=== PATIENT | male | born 1960 | race Caucasian/White ===

== ENCOUNTER 2019-04-05 11:10 | Inpatient (IN) | payer BC ==
[~2019-04-05] VITALS: Ht 182.9 cm; Wt 107.4 kg
[2019-05-04] VITALS (13 sets, daily range): BP systolic 116–152; BP diastolic 63–86; PULSE 49–99; TEMP 97.7–98.7
--- NOTE | 2019-05-04 06:30 | NUR ---
The patient ambulated back to [place] [facility] independently using a steady gait and appeared to tolerate the activity well. Vital signs obtained. Consent signed. 18G IV started in left wrist with one stick, LR infusing without difficulty. Blood was obtained from IV start for type and screen as ordered. Heart Reg. Lungs clear. Bowel sounds audible. brought back to be at his bedside. Call light is within reach. The patient denies any further needs at this time. Will continue to monitor the patient.
[2019-05-04] MEDS ORDERED: BENICAR 20MG TA20 MG PO (06:42)
[2019-05-04] MEDS ORDERED: AMITRIPTYLINE H25 M1 PO (06:42)
--- NOTE | 2019-05-04 12:29 | NUR ---
PT TO ROOM 348 PER BED WITH REPORT FROM [facility] STEARNS PACU @3448. PT IS A/O X3 AT BEDSIDE. ABDOMINAL INCISIONS CLOSED WITH SWIFTSET X4 INCISION TO LEFT SIDE ABD WITH ROSEMARIE DRAIN INPLACE NO DRAINAGE NOTED AT THIS TIME. IV TO PUMP,, WELCH CATHETER TO DD WITH CLEAR YELOW URINE. STATLOCK INPLACE TO RIGHT INNER THIGH.
--- NOTE | 2019-05-04 14:58 | NUR ---
PT UP WITH ASSIST.
--- NOTE | 2019-05-04 18:44 | NUR ---
Report to Ra STEARNS.
--- NOTE | 2019-05-04 21:30 | NUR ---
Pt. up ambulating at this time with standby assist. Pt. then assist to bed. Pt. is A&OX3, assessment complete. IV to lt. hand patent, IV fluids infusing per orders. Moore catheter to DD with red-tinged urine. ROSEMARIE drain noted, minimal drainage noted. Abd. incisions X4 [employer] with swiftset. Pt. denies pain or other needs, call light within reach.
[2019-05-05 06:31] LABS: BASO % 0.2 % (0.0-2.0); EOS # 0.1 (0.0-0.7); EOS % 0.4 % (0-4.0); GRAN # 9.8 (1.4-6.5); GRAN % 74.5 % (42.2-75.2); HEMATOCRIT 42.1 % (42.0-52.0); LYMPH # 1.8 (1.2-3.4); LYMPH % 13.8 % (20.0-51.0); MEAN CELL VOLUME 87 fl (80.0-100.0); MEAN CORPUSCULAR HEMOGLOBIN 29 pg (27.0-31.0); MEAN CORPUSCULAR HGB CONC 33 g/dl (33.0-37.0); MONO # 1.4 (0.1-0.6); MONO % 10.7 % (1.7-9.3); PLATELET COUNT 185 K/mm3 (130-400); RED BLOOD COUNT 4.83 M/mm3 (4.20-5.60); REDCELL DISTRIBUTION WIDTH-CV 12.8 % (11.5-14.5)
[2019-05-05 06:50] LABS: CALCIUM 8.5 mg/dL (8.4-10.2); CREATININE, serum 0.98 (0.66-1.25); POTASSIUM 4.4 mmol/L (3.4-5.0)
[2019-05-05 07:47] VITALS: BP 150/84; PULSE 69; TEMP 98.4
--- NOTE | 2019-05-05 08:00 | NUR ---
UPON ENTRY INTO ROOM, PATIENT IS SITTING UP IN THE CHAIR. PATIENT IS A&OX4. VSS. BOWEL SOUNDS ACTIVE ALL FOUR QUADRANTS. PATIENT TOLERATING DIET WITHOUT ANY COMPLAINTS OF N/V. ABDOMINAL LAP SITES X4 OLIMPIA WITH EDGES WELL APPROXIMATED AND MUSTAFA SET IN PLACE. ROSEMARIE DRAIN TO BULB COMPRESSION TO ABDOMINAL LLQ. SCANT AMOUNT OF BRIGHT RED BLOOD PRESENT IN DRAINAGE BULB. SMALL AMOUNT OF OLD BLOODY DRAINAGE PRESENT ON ROSEMARIE DRAIN SITE DRESSING. WELCH CATHETER DRAINING MATT COLORED URINE TO CATHETER BAG. POSITIVE PEDAL PULSES EQUAL BILATERALLY. INT TO LEFT HAND. CALL LIGHT WITHIN REACH. PATIENT DENIES ANY OTHER NEEDS AT THIS TIME.
[2019-05-05 12:22] VITALS: BP 146/75; PULSE 76; TEMP 98
--- NOTE | 2019-05-05 12:50 | NUR ---
PATIENT'S LEFT ABDOMEN ROSEMARIE DRAIN DISCONTINUED PER DR. LEONARD'S ORDERS. SUTURES REVOMED. GAUZE AND TEGADERM DRESSING APPLIED TO ROSEMARIE SITE. PATIENT TOLERATED WELL.
--- NOTE | 2019-05-05 14:57 | NUR ---
SW met with patient to discuss discharge planning. Patient reports he plans to return home with his once he is discharged. Patient's PCP is Dr Feliz Alejandra and he obtains prescriptions from [facility] in [place]. Patient is independent with all ADLs and does not use any DME or home health services. Patient does not have a DPOA-HC and is not interested in completing one at this time. SW does not anticipate any discharge needs.
[2019-05-05 16:35] VITALS: BP 145/74; PULSE 65; TEMP 98.1
--- NOTE | 2019-05-05 19:02 | NUR ---
REPORT GIVEN TO DARYN HANKS.
[2019-05-05 20:01] VITALS: BP 127/72; PULSE 51; TEMP 98
--- NOTE | 2019-05-05 21:00 | NUR ---
PATIENT IN BED, READY FOR SLEEP. TAKES HS MEDS WITHOUT PROBLEM. HAS GLUED LAP SITES TO ABDOMEN, BOWEL SOUNDS ACTIVE. WELCH TO BSD WITH YELLOW URINE. SL TO LEFT HAND WITHOUT REDNESS OR SWELLING. NO CONCERNS OFFERED AT THIS TIME.
--- NOTE | 2019-05-06 00:20 | NUR ---
PATIENT REQUESTS NOT TO BE AWAKENED FOR 0400 VS.
[2019-05-06 00:32] VITALS: BP 146/78; PULSE 69; TEMP 98.6
--- NOTE | 2019-05-06 06:10 | NUR ---
PATIENT AWAKE, TAKES SCHEDULED ES TYLENOL AND TORADOL AT THIS TIME. HOPING TO GO HOME TODAY.
[2019-05-06 08:21] VITALS: BP 136/81; PULSE 72; TEMP 98.1
--- NOTE | 2019-05-06 12:20 | NUR ---
Urinary leg bag teaching done. Patient verbalized understanding. Radical prostatectomy home instructions given. Questions answered by Dr. Reid. No complaints. Dismissed to home per w/c with spouse.
[2019-05-06 12:39] VITALS: BP 137/81; PULSE 66; TEMP 98.3
== END 2019-05-06 12:20 | disposition home or self-care (01) | DRG 708 ==
LOC: INPTSU 05-04 05:47 → SURG 05-04 05:47
PROVIDERS: ADMIT Urology
PROC: 07TC4ZZ Resection of Pelvis Lymphatic, Percutaneous Endoscopic Approach (ICD-10-PCS; 2019-05-04)
PROC: 0VT34ZZ Resection of Bilateral Seminal Vesicles, Percutaneous Endoscopic Approach (ICD-10-PCS; 2019-05-04)
PROC: 0VTQ4ZZ Resection of Bilateral Vas Deferens, Percutaneous Endoscopic Approach (ICD-10-PCS; 2019-05-04)
PROC: 8E0W4CZ Robotic Assisted Procedure of Trunk Region, Percutaneous Endoscopic Approach (ICD-10-PCS; 2019-05-04)
PROC: 0VT04ZZ Resection of Prostate, Percutaneous Endoscopic Approach (ICD-10-PCS; principal; 2019-05-04 07:30)
DX: C61 Malignant neoplasm of prostate (principal); R91.8 Other nonspecific abnormal finding of lung field; I10 Essential (primary) hypertension; K58.9 Irritable bowel syndrome, unspecified
CPT/HCPCS: A4314; A9284; J0690; J1100; J1885; J2250; J2405; J2704; J3010; J7120